=== PATIENT | female | born 1980 | race Caucasian/White ===

== ENCOUNTER 2020-08-02 08:16 | Outpatient (REF) | payer OTHER, SELFPAY ==
[2020-08-02 12:11] LABS: Alanine Aminotransferase 20 U/L (0-31); Albumin Level 4.4 g/dL (3.5-5.0); Alkaline Phosphatase 62 U/L (39-117); Anion Gap 15 (12-20); Aspartate Amino Transferase 17 U/L (5-31); Bilirubin Total 0.7 mg/dL (0.0-1.0); Blood Urea Nitrogen 12 mg/dL (9-16); Calcium 8.9 mg/dL (8.4-10.2); Carbon Dioxide 27 mmol/L (22-29); Chloride 103 mmol/L (96-108); Cholesterol 186 mg/dL; Estimated Glomerular Filt Rate > 60; Glucose Fasting 91 mg/dL (60-99); HDL Cholesterol 38 mg/dL; LDL Cholesterol Calculated 96 mg/dl; Sodium 141 mmol/L (135-145); TSH reflex Free T4 1.26 uIU/mL (0.32-4.0); Triglycerides 260 mg/dL
== END 2020-08-02 08:17 | disposition home or self-care (01) ==
LOC: HO.HMGCLDS 08:16
PROVIDERS: PCP Nurse Practitioner Family; Visit Provider Nurse Practitioner Family
DX: Z00.00 Encounter for general adult medical examination without abnormal findings (principal)
CPT/HCPCS: 36415; 80053; 80061; 84443

== ENCOUNTER 2022-08-08 08:28 | Outpatient (REF) | payer OTHER, SELFPAY ==
[2022-08-08 11:12] LABS: MANUAL DIFF FLAG NO
[2022-08-08 11:24] LABS: Basophils Absolute Auto 0.1 X10*3/uL (0.0-0.2); Basophils Percent Auto 1.2 % (0-2); Eosinophils Absolute Auto 0.1 X10*3/uL (0.0-0.4); Eosinophils Percent Auto 2.4 % (0-4); Hemoglobin 14.1 g/dl (12.0-16.0); Imm Gran Abs Auto 0.01 X10*3/uL (0.00-0.03); Imm Gran Pct Auto 0.2 % (0.0-0.4); Lymphocytes Absolute Auto 1.9 X10*3/uL (1.2-4.9); Lymphocytes Percent Auto 33.9 % (20-40); Mean Corpuscular HGB Conc 33.6 g/dl (31.0-35.0); Mean Corpuscular Hemoglobin 28.5 pg (27.0-33.0); Mean Platelet Volume 9.8 fL (9.4-12.3); Monocytes Absolute Auto 0.5 X10*3/uL (0.1-1.2); Monocytes Percent Auto 8.7 % (2-11); Neutrophils Absolute Auto 3.1 x10*3/uL (2.0-8.3); Neutrophils Percent Auto 53.6 % (45-73); Platelet Count 279 X10*3/uL (160-400); Red Blood Count 4.94 X10*6/uL (4.20-5.50); Red Cell Distribution Width 11.8 % (11.0-16.0); White Blood Count 5.7 X10*3/uL (4.8-10.8)
[2022-08-08 12:00] LABS: Alanine Aminotransferase 29 U/L (0-31); Albumin Level 4.4 g/dL (3.5-5.0); Alkaline Phosphatase 64 U/L (39-117); Anion Gap 11 (12-20); Aspartate Amino Transferase 18 U/L (5-31); Bilirubin Total 1.2 mg/dL (0.0-1.0); Blood Urea Nitrogen 10 mg/dL (9-16); Calcium 9.6 mg/dL (8.4-10.2); Carbon Dioxide 29 mmol/L (22-29); Chloride 106 mmol/L (96-108); Cholesterol 203 mg/dL; Estimated Glomerular Filt Rate > 60; Glucose Fasting 97 mg/dL (60-99); HDL Cholesterol 35 mg/dL; LDL Cholesterol Calculated 104 mg/dl; Potassium 4.3 mmol/L (3.3-5.1); Sodium 142 mmol/L (135-145); TSH reflex Free T4 1.02 uIU/mL (0.32-4.0); Total Protein 7.1 g/dL (6.5-8.0); Triglycerides 324 mg/dL
== END 2022-08-08 08:29 | disposition home or self-care (01) ==
LOC: HO.HMGCLDS 08:28
PROVIDERS: PCP Nurse Practitioner Family; Visit Provider Nurse Practitioner Family
DX: F41.9 Anxiety disorder, unspecified (principal)
CPT/HCPCS: 36415; 80053; 80061; 84443; 85025

== ENCOUNTER 2022-09-04 14:39 | Outpatient (REF) | payer BC, SELFPAY ==
[2022-09-04 16:39] LABS: MANUAL DIFF FLAG NO
[2022-09-04 16:43] LABS: Basophils Absolute Auto 0.1 X10*3/uL (0.0-0.2); Basophils Percent Auto 1.2 % (0-2); Eosinophils Absolute Auto 0.1 X10*3/uL (0.0-0.4); Eosinophils Percent Auto 1.9 % (0-4); Hematocrit 37.4 % (37.0-47.0); Imm Gran Abs Auto 0.02 X10*3/uL (0.00-0.03); Imm Gran Pct Auto 0.3 % (0.0-0.4); Lymphocytes Absolute Auto 2.3 X10*3/uL (1.2-4.9); Lymphocytes Percent Auto 38.7 % (20-40); Mean Corpuscular HGB Conc 34.8 g/dl (31.0-35.0); Mean Corpuscular Volume 83.5 fL (80.0-98.0); Mean Platelet Volume 9.9 fL (9.4-12.3); Monocytes Absolute Auto 0.4 X10*3/uL (0.1-1.2); Monocytes Percent Auto 7.3 % (2-11); Neutrophils Percent Auto 50.6 % (45-73); Platelet Count 306 X10*3/uL (160-400); Red Blood Count 4.48 X10*6/uL (4.20-5.50); White Blood Count 5.9 X10*3/uL (4.8-10.8)
[2022-09-04 17:10] LABS: Alanine Aminotransferase 24 U/L (0-31); Albumin Level 4.3 g/dL (3.5-5.0); Alkaline Phosphatase 60 U/L (39-117); Anion Gap 14 (12-20); Aspartate Amino Transferase 18 U/L (5-31); Bilirubin Total 0.6 mg/dL (0.0-1.0); Blood Urea Nitrogen 14 mg/dL (9-16); Carbon Dioxide 27 mmol/L (22-29); Chloride 103 mmol/L (96-108); Estimated Glomerular Filt Rate 52; Glucose Random 103 mg/dL (60-115); Potassium 3.8 mmol/L (3.3-5.1); Sodium 140 mmol/L (135-145); Total Protein 6.9 g/dL (6.5-8.0)
== END 2022-09-04 14:40 | disposition home or self-care (01) ==
LOC: HO.HMGCLDS 14:39
PROVIDERS: PCP Nurse Practitioner Family; Visit Provider Nurse Practitioner Family
DX: Z01.818 Encounter for other preprocedural examination (principal)
CPT/HCPCS: 36415; 80053; 85025

== ENCOUNTER 2024-05-22 08:07 | Outpatient (REF) | payer BC, MEDICAID, SELFPAY ==
[2024-05-22 11:19] LABS: MANUAL DIFF FLAG NO
[2024-05-22 11:36] LABS: Basophils Absolute Auto 0.1 X10*3/uL (0.0-0.2); Basophils Percent Auto 1.2 % (0-2); Eosinophils Absolute Auto 0.2 X10*3/uL (0.0-0.4); Hematocrit 38.4 % (37.0-47.0); Hemoglobin 13.4 g/dl (12.0-16.0); Imm Gran Abs Auto 0.02 X10*3/uL (0.00-0.03); Imm Gran Pct Auto 0.3 % (0.0-0.4); Lymphocytes Absolute Auto 2.6 X10*3/uL (1.2-4.9); Lymphocytes Percent Auto 38.7 % (20-40); Mean Corpuscular HGB Conc 34.9 g/dl (31.0-35.0); Mean Corpuscular Hemoglobin 29.2 pg (27.0-33.0); Mean Corpuscular Volume 83.7 fL (80.0-98.0); Mean Platelet Volume 10.1 fL (9.4-12.3); Monocytes Absolute Auto 0.6 X10*3/uL (0.1-1.2); Monocytes Percent Auto 8.5 % (2-11); Neutrophils Absolute Auto 3.2 x10*3/uL (2.0-8.3); Neutrophils Percent Auto 48.3 % (45-73); Platelet Count 320 X10*3/uL (160-400); Red Blood Count 4.59 X10*6/uL (4.20-5.50); Red Cell Distribution Width 11.9 % (11.0-16.0); White Blood Count 6.7 X10*3/uL (4.8-10.8)
[2024-05-22 11:48] LABS: Alanine Aminotransferase 27 U/L (0-31); Albumin Level 4.3 g/dL (3.5-5.0); Alkaline Phosphatase 50 U/L (39-117); Anion Gap 9 (12-20); Aspartate Amino Transferase 20 U/L (5-31); Bilirubin Total 0.5 mg/dL (0.0-1.0); Blood Urea Nitrogen 9 mg/dL (9-16); Calcium 8.9 mg/dL (8.4-10.2); Carbon Dioxide 25 mmol/L (22-29); Chloride 110 mmol/L (96-108); Cholesterol 183 mg/dL (<200); Estimated Glomerular Filt Rate > 60; Glucose Fasting 96 mg/dL (60-99); HDL Cholesterol 31 mg/dL (>40); LDL Cholesterol Calculated 107 mg/dL (<100); Potassium 3.6 mmol/L (3.3-5.1); Sodium 140 mmol/L (135-145); Triglycerides 225 mg/dL (<150)
[2024-05-22 12:05] LABS: TSH reflex Free T4 0.99 uIU/mL (0.32-4.0)
== END 2024-05-22 08:08 | disposition home or self-care (01) ==
LOC: HO.HMGCLDS 08:07
PROVIDERS: PCP Nurse Practitioner Family; Visit Provider Nurse Practitioner Family
DX: Z00.00 Encounter for general adult medical examination without abnormal findings (principal)
CPT/HCPCS: 36415; 80053; 80061; 84443; 85025

== ENCOUNTER → 2024-05-26 08:16 | Outpatient (BNVA) | payer BC, MEDICAID, SELFPAY | PROVIDERS: PCP Nurse Practitioner Family; Visit Provider Nurse Practitioner Family | DX: Z00.00 Encounter for general adult medical examination without abnormal findings (principal); M54.50 Low back pain, unspecified | CPT/HCPCS: 96127 ==

== ENCOUNTER 2024-05-26 09:06 | Outpatient (AMB) | payer BC, MEDICAID, SELFPAY ==
[2024-05-26 08:20] VITALS: BP 130/86; PULSE 92; O2SAT 98; BMI 33.3
--- NOTE | 2024-05-26 08:20 | MHC.PC.OV ---
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 Accompanied by: Self / Same As Patient Allergies penicillin V Allergy (Unknown, Verified 05/26/24 08:21) rash Penicillins [PENICILLINS] Allergy (Unknown, Verified 05/26/24 08:21) HIVES-CHILDHOOD ALLERGY Medication List - Last Reconciled 05/26/24 by Jose Kimbrough, [facility] buspirone 7.5 mg PO BID cyclobenzaprine 10 mg PO BID PRN 30 days fenofibrate 54 mg PO DAILY metoprolol succinate ER 25 mg PO DAILY 90 days tramadol 50 mg PO BID PRN 10 days Tobacco use date assessed: 05/26/24 Dental Screening Dental Screen Date: 05/26/24 Did you have a dental visit in the last 12 months?: Yes Did you have a dental problem in the last 6 months where you did not have access to dental care?: No Was dental information given to patient?: Patient has dentist HPI Med Follow-up HPI Details History of Present Illness The patient is a 43-year-old female presenting for an annual physical examination. During this visit, she reports previously elevated triglyceride levels, although they are now decreasing compared to prior laboratory results. The patient also seeks a refill for tramadol due to anticipated significant lower back pain exacerbated by extensive walking and activities during an upcoming trip to [facility]. She acknowledges that her back pain intensifies particularly with amusement park rides, and she is aware of the associated restrictions, including no alcohol consumption, driving, or sharing the medication, and to take only as prescribed. The patient confirms her understanding of these limitations. Lastly, she declined vaccinations during this visit. Health Maintenance - Recent laboratory results indicate elevated triglycerides, but improvement has been noted over time. - Mammography is pending; the patient plans to schedule this. - Declined vaccinations during this visit. - Obesity management discussion likely warranted, although not expanded upon in the conversation. 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 Review of Systems - Musculoskeletal: Reports significant lower back pain with activities involving extensive walking or amusement park rides. -denies any cp, sob, mendez, blurred vision, urinary complications, N/V, depression, anxiety, SI or HI Physical Exam General: Obese Orientation: Patient oriented x3 Limitations: No limitations Head: Normal to inspection Ears: Hearing grossly normal bilaterally Nose: Normal external nose present Face and sinus: Normal facial exam Eyes: Appearance normal, both eyes and all related structures Neck: Normal visual inspection and Yes full ROM Respiratory: Normal respiratory effort and able to speak in complete sentences. Clear to auscultation bilaterally Cardiovascular: Regular rate and rhythm. Normal S1 and S2 GI: Normal to inspection. Soft to palpation and nontender Skin: No rashes or lesions noted Neuro: Patient oriented x3 Extremities: Normal to inspection Results - Labs: Elevated triglycerides noted in previous results, currently decreasing. Plan Patient was informed and verbally consented to the use of an ambient scribe for clinic note documentation during this visit. Discussion Notes I have provided the patient with a tramadol refill given her specific needs for managing expected lower back pain during her upcoming trip. I emphasized the importance of not consuming alcohol, sharing the medication, or driving while using tramadol. We reviewed her previously elevated triglycerides, and I will continue to monitor these levels to ensure they continue to improve. We also discussed the need for a mammogram, and she will arrange this appointment herself. Additionally, I respected her decision to decline vaccinations during this encounter. Patient Instructions - Take tramadol as prescribed, ensuring no driving, alcohol, or sharing of the medication. - Monitor triglyceride levels and adhere to any previously given management advice for hypertriglyceridemia. - Schedule and complete a mammogram. - Consider returning for future vaccinations as needed or recommended. PFSH Surgical History S/P cholecystectomy Family History Father No problems noted. Mother No problems noted. 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 Current occupational exposures/hazards: No Cognitive needs: No Hearing needs: No Vision needs: No Questionnaire PHQ-9 Over the last 2 weeks, how often have you been bothered by any of the following problems? 1. Little interest or pleasure in doing things: not at all 2. Feeling down, depressed, or hopeless: not at all 3. Trouble falling or staying asleep, or sleeping too much: not at all 4. Feeling tired or having little energy: not at all 5. Poor appetite or overeating: not at all 6. Feeling bad about yourself - or that you are a failure or have let yourself or your family down: not at all 7. Trouble concentrating on things, such as reading the newspaper or watching television: not at all 8. Moving or speaking so slowly that other people could have noticed. Or the opposite - being so fidgety or restless that you have been moving around a lot more than usual: not at all 9. Thoughts that you would be better off or of hurting yourself in some way: not at all Total score: 0 Depression Screening Interpretation: Negative Depression Screening Done: Yes 11264 - PHQ-9 Billing: Yes Source: Developed by Drs. Emmett Womack, Adelaida Arias, Colton Maxwell and colleagues, with an educational ranulfo from [employer]. Thrive Questionnaire Date Thrive assessed: 05/26/24 I am a: Patient What is your living situation today?: I have a steady place to live Within the past 12 months, did the food you bought not last and you didn't have the money to get more?: Never true Within the past 12 months, did you worry whether your food would run out before you got money to buy more?: Never true Do you have trouble paying for medicines?: No Do you have trouble getting transportation to medical appointments?: No Do you have trouble paying your heating and electricity bill?: No Do you have trouble taking care of your child, family member or friend?: No Do you have trouble with day-to-day activities such as bathing, preparing meals, shopping, managing finances, etc.?: No Are you currently unemployed and looking for a job?: No Are you interested in more education?: No Please select the resources that you would like help with: None Currently or been in a relationship where the following occur: No concerns reported THRIVE Score: 0 AUDIT C Alcohol Use Questionnaire (AUDIT-C) 1. How often do you have a drink containing alcohol?: 2-4 times a month 2. How many drinks containing alcohol do you have on a typical day when you are drinking?: 1 or 2 3. How often do you have six or more drinks on one occasion?: Less than monthly Total Score: 3 Score Reviewed/Action Taken: Yes MIRYAM-7 AMB Questionnaire MIRYAM-7 Date MIRYAM - 7 assessed: 05/26/24 Feeling nervous, anxious, or on edge: 0 = Not at all Not being able to stop or control worryin = Not at all Worrying too much about different things: 0 = Not at all Trouble relaxin = Not at all Being so restless that it is hard to sit still: 0 = Not at all Becoming easily annoyed or irritable: 0 = Not at all Feeling afraid as if something awful might happen: 0 = Not at all Total MIRYAM-7 score (0-4 normal; 5-9 mild; 10-14 moderate; 15-21 severe): 0 Source: Developed by Drs. Emmett Womack, Adelaida Arias, Colton Maxwell and colleagues, with an educational ranulfo from [employer]. MIRYAM-7 Assessment Billing MIRYAM-7 Assessment Tool: MIRYAM-7 Assessment 82508 Physical exam (Primary Care) Vital Signs: Last Vital Signs Pulse 92 05/26/24 08:20 BP 130/86 05/26/24 08:20 Pulse Ox 98 05/26/24 08:20 Oxygen Delivery Method Room Air 05/26/24 08:20 BMI result Body Mass Index 33.3 Tobacco/Smoking Status: Tobacco use Status Tobacco use date assessed 05/26/24 05/26/24 08:21 Patient Tobacco Use Status Never used Tobacco 05/26/24 08:21 e-Cigarette/Vaping Use Never Used 05/26/24 08:21 PHQ-9: PHQ-9 Score PHQ-9: Total score 0 05/26/24 08:21 Depression Screening Interpretation: Negative Thrive Assessment: Date of Thrive Assessment Date Thrive assessed 05/26/24 05/26/24 08:21 Currently or been in a relationship where the following occur: No concerns reported Coding Level of Care Code Est Pt Prev Care 40-64y(19022) Diagnoses Screening for colon cancer Z12.11 Physical exam Z00.00 Additional Codes MIRYAM-7 Assessment Billing - MIRYAM-7 Assessment Tool: MIRYAM-7 Assessment 81602 ([id number]) PHQ-9 - 60854 - PHQ-9 Billing: Yes ([id number]) Assessment & Plan Assessment & Plan (1) Screening for colon cancer: Code(s): Z12.11 - Encounter for screening for malignant neoplasm of colon Category: Medical (2) Physical exam: Code(s): Z00.00 - Encounter for general adult medical examination without abnormal findings Category: Medical Plan . Orders: Referrals Gastroenterology Referral Z12.11 - Encounter for screening for malignant neoplasm of colon Medications: Changed From tramadol 50 mg PO BID 10 days PRN 20 tabs 0RF pain To tramadol cannot take concurrently with cyclobenzaprine 50 mg PO BID 10 days PRN 20 tabs 0RF pain Refilled tramadol 50 mg PO BID 10 days PRN 20 tabs 0RF pain
== END 2024-05-26 09:11 | disposition home or self-care (01) ==
PROVIDERS: PCP Nurse Practitioner Family; Visit Provider Nurse Practitioner Family
DX: Z12.11 Encounter for screening for malignant neoplasm of colon (principal); Z00.00 Encounter for general adult medical examination without abnormal findings

== ENCOUNTER 2025-03-04 07:53 | Outpatient (AMB) | payer BC, MEDICAID, SELFPAY ==
--- NOTE | 2025-03-04 07:56 | MHC.OFFVIS ---
Vital Signs 03/04/25 07:57 Height 5 ft 10 in Weight 202 lb 13.204 oz BMI 29.1 BP 117/83 Blood Pressure Location Lt brachial Position Sitting Pulse 80 Intake Visit Reasons: colo screen Intake Note: Kari presents in the office as a new patient colonoscopy screening. CC: She states that she is just due for a colonoscopy. 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 Referred by PCP for pre colonoscopy screening. This will be Kari's first screening colonoscopy. She generally has bowel movements every other day, consistent with her lifelong baseline, though there was prior decreased frequency while taking zepbound. She describes rare episodes of constipation, which is alleviated effectively with a stool softener and, less commonly, magnesium citrate. She denies regular abdominal pain, though notes occasional minor discomfort without a predictable pattern. She endorses a remote single episode of blood noted around rather than in the stool, which she attributed to a known hemorrhoid. No ongoing rectal bleeding or concerning change in bowel habits are reported. Since cholecystectomy, she notes infrequent heartburn, triggered by high-fat or tomato-based foods, which resolves spontaneously or responds to Tums; no associated regurgitation, dysphagia, or persistent symptoms. She reports a history of significant weight loss, from 230?240 lb. to 202 lb., maintained via dietary awareness. Medical history includes hyperlipidemia managed with fenofibrate and remote cholecystectomy. Medications also include buspirone, cyclobenzaprine, and metoprolol. There are no reports of anemia or hepatic/renal dysfunction on prior labs. Family history notable for paternal grandmother diagnosed with stomach cancer in her nineties; no reported colon cancer in first-degree relatives. Patient denies: fever/chills, n/v, appetite changes, regurgitation,dysphasia, unintentional wt loss, ab pain or melena/hematochezia. Social hx: -ETOH use, social, ~every other weekend; increased frequency in July (. Inocencio's Day/birthday) -marijuana edibles most nights, denies other recreational drug use -non-smoker - family hx as below -denies personal hx of CA -denies significant cardiopulmonary history -tolerated anesthesia in the past without difficulty. [facility] Medical History (Updated 03/04/25 @ 08:27 by Jennifer So CNP) Acid reflux Surgical History S/P cholecystectomy Family History (Updated 03/04/25 @ 08:10 by Jennifer So CNP) Father No problems noted. Mother No problems noted. 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 exposures/hazards: No Cognitive needs: No Hearing needs: No Vision needs: No Review of Systems Const Reports as per HPI ENT Reports as per HPI Card Reports as per HPI Resp Reports as per HPI GI Reports as per HPI Reports as per HPI Physical Exam Vital Signs: Last Vital Signs Pulse 80 03/04/25 07:57 BP 117/83 03/04/25 07:57 BMI result Body Mass Index 29.1 Const General: healthy appearing, no acute distress and well developed Nutritional Appearance: average body habitus Orientation/consciousness: patient oriented x3 HEENT Head: Yes normal to inspection, Yes normocephalic and Yes atraumatic Face and sinus: Yes normal facial exam Eyes General: appearance normal, both eyes and all related structures Neck Neck: Yes normal visual inspection Resp Effort & Inspection: normal respiratory effort, able to speak in complete sentences, no tracheal deviation and symmetric chest movement Cardio Jugular venous distension: no JVD Neuro General: patient oriented x3 Gait exam (Neuro): Normal gait present Psych Appearance: grossly normal Mental Status: mental status grossly normal Speech and movement: Normal speech and movement present Affect: normal affect Attitude: cooperative Thought process: Normal thought process present Thought content: Normal thought content present Insight: Good insight present (Psych) Judgement: Good judgement present (Psych) Assessment & Plan Assessment & Plan (1) Screening for colon cancer: Code(s): Z12.11 - Encounter for screening for malignant neoplasm of colon Category: Medical Plan: Average-risk colorectal neoplasia screening. Patient presents without alarm symptoms. Family history limited to stomach cancer (paternal grandmother); no 1st-degree relative with colon cancer. No change in baseline GI function or high-risk features. - Additional Testing: Screening colonoscopy ordered and instructions provided. - Medication Management: Miralax split-dose prep with 4 laxative tabs prescribed; to be purchased OTC if not covered. - Lifestyle Recommendations: Clear liquid diet day prior to procedure. Avoid red or blue liquids/dyes. Reliable ride required due to procedural sedation. - Follow-Up: As-needed post-procedure, to be determined by results unless new symptoms arise. (2) Acid reflux: Code(s): K21.9 - Gastro-esophageal reflux disease without esophagitis Category: Medical Qualifiers: Esophagitis presence: esophagitis presence not specified Qualified Code(s): K21.9 - Gastro-esophageal reflux disease without esophagitis Plan: Infrequent gastroesophageal reflux symptoms (likely post-cholecystectomy, diet-triggered) - Rationale: Symptoms occur only following specific triggers. Responsive to antacids; no alarm features. - Additional Testing: Shared decision making to hold on EGD at this time given infrequency, clear dietary triggers, and absence of alarm symptoms. EGD can be considered if symptoms worsen, become persistent, or if new features such as dysphagia, regurgitation, or weight loss develop. - Medication Management: Continue antacid (Tums) as needed; no change. - Lifestyle Recommendations: Avoid dietary triggers (e.g., high-fat or saucy pizza); maintain current healthy habits. - Follow-Up: Advise to notify clinic for any escalation in frequency/severity or new symptoms such as dysphagia, regurgitation, chest pain, or unintended weight loss. Plan Follow-up as needed Time: I spent a total of 20 minutes on the date of encounter which includes: Preparing to see the patient (reviewed previous documentation, test results and medical history) Performing a medically appropriate exam and/or evaluation Ordering medications, tests, and procedures Documenting clinical information in the health record Orders: Referrals GI Procedure Notification Z12.11 - Encounter for screening for malignant neoplasm of colon Medications: New bisacodyl Take per colonoscopy instructions 20 mg (4 x 5 mg) PO ONCE 4 tabs 0RF polyethylene glycol 3350 (Miralax) per colonoscopy prep instructions 238 grams PO ONCE 238 grams 0RF Discontinued tramadol cannot take concurrently with cyclobenzaprine Discontinued Reason: Patient no longer taking 50 mg PO BID 10 days PRN 20 tabs 0RF pain Coding Level of Care Code New Pt New Pt Level 2 (27744) Patient Type New Diagnoses Screening for colon cancer Z12.11 Gastroesophageal reflux disease, unspecified whether esophagitis present K21.9 Esophagitis presence: esophagitis presence not specified
[2025-03-04 07:57] VITALS: BP 117/83; PULSE 80; BMI 29.1
--- OUTSIDE RECORDS SUMMARY | 2025-03-04 07:57 | XMS_ITS ---
Author Name [facility] Organization Unknown Care Team Organization Name Specialty Phone Email Start Date End Da te [employer] Insurance 06/01/2023
--- OUTSIDE RECORDS SUMMARY | 2025-03-04 07:57 | XMS_ITS | Patient Health Record ---
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 Name Role Phone Awilda HANSON, Keerthi Nguyen Primary Care Provider Un available Brenton Margoth Unavailable [phone] Allergies Allergen (clinical drug ingredient) Drug/Non Drug Allergy documented on EMR Reaction Allergy Type Onset Date Status Information temporarily unavailable Penicillins rash Drug Allergy Active Reason For Referral No Information Medications Medication SIG (Take, Route, Frequency, Duration) Notes Start Date End Date Status busPIRone HCl 7.5 MG 1 tablet Orally Twi ce a day Active oxyCODONE HCl 5 MG 1-2 tablet as needed Orally every 4-6 hrs; Duration: 10 days 09/06/2022 Not-Taking Fenofibrate Active Metoprolol Tartrate 25 MG 1 tablet with food Orally Twice a day; Duration: 30 day(s) Active Work Note . . . Patient can retu rn to work with no restrictions on Friday11/25/2022 09/06/2022 Active Social History Tobacco Use: Social History Observation Description Date Details (start date - stop date) Never Smoker NA - NA Tobacco Use/Smoking Question Answer Notes Are you a: nonsmoker Additional Findings: Tobacco Non-User Aggressive non-smoker Alcohol Screen Question Answer Notes Did you have a drink contain ing alcohol in the past year? Yes How often did you have a dri nk containing alcohol in the past year? Monthly or less (1 point) Points 1 Interpretation Negative Tobacco use other than smoking: Question Answer Notes Are you an other tobacco user? No Problems Problem Type SNOMED Code ICD Code Onset Dates Problem Status W/U Status Risk Notes Problem Information temporarily unavailable Hallux valgus (acquired), right foot (M20.11) Active confirmed Problem Information temporarily unavailable Acquired hallux interphalangeus of right foot (M20.11) Active confirmed Plan Of Treatment Pending Test Test Name Order Date X ray : Foot, right 3V 04/16/2022 X ray : Foot, right 3V 09/06/2022 X ray : Foot, right 3V 09/24/2022 X ray : Foot, right 3V 10/01/2022 X ray : Foot, right 3V 10/15/2022 X ray : Foot, right 3V 10/29/2022 Insurance Providers Payer Name Payer Address Payer Phone Subscriber Number Group Number Insured Name Patient Relationship to Insured Coverage Start Date Coverage End Date [facility] [address] [place] [address] [id number] Сергей Godoy Spouse - patient is the spouse of the insured Medical (General) History Medical History History ICD Code Anxiety Surgical History Surgery Date(Month/Year) breast reduction 10/2000 gall bladder 02/2018 tubal ligation 07/2012 endometrial ablation [place] osteotomy right 09/18/2022
== END 2025-03-04 08:29 | disposition home or self-care (01) ==
LOC: HO.HGI 07:54
PROVIDERS: PCP Nurse Practitioner Family; Visit Provider Nurse Practitioner Family
DX: Z01.818 Encounter for other preprocedural examination (principal); Z12.11 Encounter for screening for malignant neoplasm of colon; K21.9 Gastro-esophageal reflux disease without esophagitis
CPT/HCPCS: S0285